=== PATIENT | female | born 2000 | race Caucasian/White ===

== ENCOUNTER 2018-02-09 17:52 | Emergency (ER) | payer OTHER ==
[2018-02-09] MEDS ORDERED: Albuterol/Ipratropium 3.0-0.5 MG/3 ML Neb Soln NEB ONE (18:33)
--- NOTE | 2018-02-09 18:35 | EDM.PDOC ---
ED HPI GENERAL MEDICAL PROBLEM - General Chief Complaint: Respiratory Problem Stated Complaint: COUGH/CONGESTION/TROUBLE BREATHING Time Seen by Provider: 02/09/18 18:29 - History of Present Illness INITIAL COMMENTS - FREE TEXT/NARRATIVE: HISTORY AND PHYSICAL: History of present illness: Patient is a 18-year-old white female history of reactive airway disease presents concern of one-week history of sore throat congestion cough now developed some mild shortness of breath and chest pain she was exposed and once approximately 7-10 days prior she was not immunized this year has been no vomiting diarrhea or other concern pulse oximetry on arrival was 95% Review of systems: As per history of present illness and below otherwise all systems reviewed and negative. Past medical history: As per history of present illness and as reviewed below otherwise noncontributory. Surgical history: As per history of present illness and as reviewed below otherwise noncontributory. Social history: No reported history of drug or alcohol abuse. Family history: As per history of present illness and as reviewed below otherwise noncontributory. Physical exam: HEENT: Atraumatic, normocephalic, pupils reactive, negative for conjunctival pallor or scleral icterus, mucous membranes moist, throat clear, neck supple, nontender, trachea midline. Lungs: Clear to auscultation, breath sounds equal bilaterally, chest nontender. Heart: S1S2, regular, negative for clicks, rubs, or JVD. Abdomen: Soft, nondistended, nontender. Negative for masses or hepatosplenomegaly. Negative for costovertebral tenderness. Pelvis: Stable nontender. Genitourinary: Deferred. Rectal: Deferred. Extremities: Atraumatic, negative for cords or calf pain. Neurovascular unremarkable. Neuro: Awake, alert, oriented. Cranial nerves II through XII unremarkable. Cerebellum unremarkable. Motor and sensory unremarkable throughout. Exam nonfocal. Diagnostics: Rapid strep influenza screen chest x-ray Therapeutics: Albuterol ipratropium nebulizer Impression: #1 viral syndrome #2 history of reactive airway disease Definitive disposition and diagnosis as appropriate pending reevaluation and review of above. Middle Chest Pain Score (Numeric/FACES): 7 - Related Data Allergies Allergy/AdvReac Type Severity Reaction Status Date / Time Sulfa (Sulfonamide Allergy Rash Verified 02/09/18 18:15 Antibiotics) Home Meds: Home Meds Albuterol Sulfate [Proventil Hfa] 2 puff INH ASDIRECTED PRN 02/09/18 [History] Levocetirizine Dihydrochloride [Xyzal] 1 tab PO DAILY 02/09/18 [History] Past Medical History - Past Health History Medical/Surgical History: Denies Medical/Surgical History - Infectious Disease History Infectious Disease History: Reports: Chicken Pox Social & Family History - Family History Family Medical History: Noncontributory - Tobacco Use Smoking Status *Q: Never Smoker - Caffeine Use Caffeine Use: Reports: Soda - Recreational Drug Use Recreational Drug Use: No ED ROS GENERAL - Review of Systems Review Of Systems: ROS reveals no pertinent complaints other than HPI. ED EXAM, GENERAL - Physical Exam Exam: See Below (See dictation) Course - Vital Signs Last Recorded V/S: Last Vital Signs Temp 37.7 C 02/09/18 18:10 Pulse 113 H 02/09/18 18:10 Resp 20 02/09/18 18:10 BP 127/75 02/09/18 18:10 Pulse Ox 98 02/09/18 18:10 - Orders/Labs/Meds Orders: Active Orders 24 hr Category Date Time Status RT Aerosol Therapy [RC] ASDIRECTED Care 02/09/18 18:33 Active Chest 1V Frontal [CR] Stat Exams 02/09/18 18:33 Taken CULTURE STREP A CONFIRMATION [] Stat Lab 02/09/18 18:00 Results INFLUENZA A+B AG SCREEN [] Stat Lab 02/09/18 18:00 Ordered STREP SCRN A RAPID W CULT CONF [] Stat Lab 02/09/18 18:00 Ordered Meds: Medications Discontinued Medications Generic Name Dose Route Start Last Admin Trade Name Calin PRN Reason Stop Dose Admin Albuterol/Ipratropium 3 ml 02/09/18 18:33 02/09/18 19:02 Duoneb 3.0-0.5 Mg/3 Ml NEB 02/09/18 18:34 3 ml ONETIME ONE Administration Departure - Departure Time of Disposition: 19:39 Disposition: Home, Self-Care 01 Condition: Good Clinical Impression: Viral syndrome, History of asthma - Discharge Information Referrals: PCP,None [Primary Care Provider] - Forms: ED Department Discharge Additional Instructions: The following information is given to patients seen in the emergency department who are being discharged to home. This information is to outline your options for follow-up care. We provide all patients seen in our emergency department with a follow-up referral. The need for follow-up, as well as the timing and circumstances, are variable depending upon the specifics of your emergency department visit. If you don't have a primary care physician on staff, we will provide you with a referral. We always advise you to contact your personal physician following an emergency department visit to inform them of the circumstance of the visit and for follow-up with them and/or the need for any referrals to a consulting specialist. The emergency department will also refer you to a specialist when appropriate. This referral assures that you have the opportunity for followup care with a specialist. All of these measure are taken in an effort to provide you with optimal care, which includes your followup. Under all circumstances we always encourage you to contact your private physician who remains a resource for coordinating your care. When calling for followup care, please make the office aware that this follow-up is from your recent emergency room visit. If for any reason you are refused follow-up, please contact the [facility] emergency department at and asked to speak to the emergency department charge nurse. Push fluids continue current medications Motrin/Tylenol as directed return as needed as discussed follow-up with primary medical doctor - My Orders Last 24 Hours: My Active Orders 02/09/18 18:00 CULTURE STREP A CONFIRMATION [RM] Stat INFLUENZA A+B AG SCREEN [RM] Stat STREP SCRN A RAPID W CULT CONF [RM] Stat 02/09/18 18:33 RT Aerosol Therapy [RC] ASDIRECTED Chest 1V Frontal [CR] Stat - Assessment/Plan Last 24 Hours: My Active Orders 02/09/18 18:00 CULTURE STREP A CONFIRMATION [RM] Stat INFLUENZA A+B AG SCREEN [RM] Stat STREP SCRN A RAPID W CULT CONF [RM] Stat 02/09/18 18:33 RT Aerosol Therapy [RC] ASDIRECTED Chest 1V Frontal [CR] Stat
--- NOTE | 2018-02-10 10:44 | CR ---
EXAM DATE: 02/09/18 PATIENT'S AGE: 18 Patient: CALEB ALEX Facility: [place], [place] Site . Site : 1998 Study: XRay Chest [id number]/10/2018 6:51:53 PM Ordering Physician: Romana Olea Final Report: INDICATION: Chest pain and shortness of breath TECHNIQUE: Chest 1 view COMPARISON: None FINDINGS: Cardiovascular and mediastinum: Heart size and vasculature are normal in caliber and appearance. Lungs and pleural spaces: Lungs are clear. No sign of infiltrate or mass. No sign of pleural effusion. No pneumothorax. Bones and soft tissues: No significant findings. IMPRESSION: No acute or significant findings. Dictated by Good Akers MD @ Feb 09 2018 6:59PM (Electronic Signature) Report Signed by Proxy. JONH
== END 2018-02-09 20:05 | disposition home or self-care (01) ==
LOC: MW.ED 17:52
DX: B34.9 Viral infection, unspecified (principal); J45.909 Unspecified asthma, uncomplicated; Z88.2 Allergy status to sulfonamides
CPT/HCPCS: 71045; 71045-26; 87081; 87804; 87880; 94640; 99283; 99284-25